=== PATIENT | female | born 1970 | race Caucasian/White ===

== ENCOUNTER 2020-08-14 14:32 | Outpatient (RCR) | payer BC, SELFPAY ==
[2020-08-14] MEDS: COVID-19 VACC, MRNA(PFIZER)/PF 30 MCG/0.3 ML SYRINGE IM (13:31)
[2020-09-04] MEDS: COVID-19 VACC, MRNA(PFIZER)/PF 30 MCG/0.3 ML SYRINGE IM (13:39)
== END 2020-08-14 23:59 ==
LOC: IMMUN 14:32
PROVIDERS: PCP Student in an Organized Health Care Education/Training Program; Visit Provider Family Medicine
DX: Z23 Encounter for immunization (principal)
CPT/HCPCS: 0001A; 0002A; 91300

== ENCOUNTER → 2023-06-08 | Outpatient (CLI) | payer OTHER, SELFPAY ==
[2023-06-08 16:47] LABS: Absolute Lymphocyte Count 1.31 X10^3/uL (0.83-4.51); Basophil# 0.06 X10^3/uL; Eosinophil# 0.06 X10^3/uL; Hematocrit 38.9 % (37-47); Hemoglobin 12.3 g/dL (12.0-15.0); Lymphocyte # 1.31 X10^3/ul (0.83-4.51); Lymphocyte % 22.7 % (19-41); Mean Corp Hgb Conc 31.6 g/dL (32-36); Mean Corpuscular Hgb 28.6 pg (27.0-32.0); Mean Corpuscular Volume 90.5 fL (81-99); Mean Platelet Vol. 10.2 fl (6.2-12.0); Monocyte# 0.36 X10^3/uL; Monocyte% 6.2 % (0-10); NRBC Flagged by Analyzer 0 % (0-5); Neutrophil # 3.97 X10^3/uL (2.7-7.7); Neutrophil % 68.9 % (47-70); Platelet Count 295 K/mm3 (150-450); RBC Distribution Width CV 13.2 % (11.6-14.6); RBC Distribution Width SD 43.4 fl (35.1-43.9); White Blood Count 5.8 K/mm3 (4.4-11.0)
--- OUTSIDE RECORDS SUMMARY | 2023-06-08 17:19 | XMS RPT_ITS | CCD ---
Author Name Unknown Address [address] [place] [address] Organization [facility] Care Team Providers Care Meal Cooker Name Role Phone Titus Zendejas DO Primary Care Provider [phone] TITUS ZENDEJAS Primary Care Unavailable DOMINIK OTERO Attending Unavailable ANTIONE RICHARDSON Referring Unavailable TITUS ZENDEJAS Primary Care Unavailable DANIELLA MOSLEY Attending Unavailable JAYE MEDELLIN Referring Unavailable TITUS ZENDEJAS Primary Care Unavailable TITUS ZENDEJAS Primary Care Unavailable PAULA BARRERA Attending Unavailable TITUS ZENDEJAS Referring Unavailable TITUS ZENDEJAS Primary Care Unavailable Allergies Allergy Classification Reported Allergen(s) Allergy Type Date of Onset Reaction(s) Facility (4 sources) Amoxicillin; Translations: [AMOXICILLIN] Drug Allergy 09-02-2005 [facility] Work Phone: Medications Current Medications Medication Drug Class(es) Dates Sig (Normalized) Sig (Original) perflutren lipid microspheres 1.3 mL in NaCl (PF) 0.9% 10 mL injection (DEFINITY) (3 sources) Start: 06-14-2021 End: 09-13-2022 perflutren lipid microspheres 1.3 mL in NaCl (PF) 0.9% 10 mL injection (DEFINITY) 125 ml sodium chloride 9 mg/ml prefilled syringe (3 sources) Start: 06-14-2021 End: 09-13-2022 sodium chloride 0.9 % (flush) 10 mL (BD POSIFLUSH) Completed/Discontinued Medications Medication Drug Class(es) Dates Sig (Normalized) Sig (Original) B.animalis,bifid,infanti s,long (PROBIOTIC 4X ORAL) (1 source) B.animalis,bifid ,infant is,long (PROBIOTIC 4X ORAL) Take by mouth. 0 Active Problems Active Problems Problem Classification Problem Date Documented Da te Episodic/Chronic Cancer of breast (6 sources) Intraductal carcinoma in situ of breast; Translations: [Intraductal carcinoma in situ of unspecified breast] Onset: 05-07-2009 05-07-2009 Chronic Genitourinary symptoms and ill-defined conditions (1 source) Increased frequency of urination; Translations: [Frequency of micturition] Episodic Menstrual disorders (3 sources) Menorrhagia; Translations: [Excessive and frequent menstruation with regular cycle] Onset: 09-26-2009 09-26-2009 Chronic Nonmalignant breast conditions (3 sources) Fibrocystic disease of breast; Translations: [Diffuse cystic mastopathy of unspecified breast] Onset: 06-17-2011 06-17-2011 Chronic Past or Other Problems Problem Classification Problem Date Documented Da te Episodic/Chronic Cancer of breast (3 sources) H/O: breast problem; Translations: [Personal history of in-situ neoplasm of breast] Onset: 03-18-2011 03-18-2011 Episodic Nonmalignant breast conditions (6 sources) Mastodynia; Translations: [Mastodynia] Onset: 08-18-2011 08-18-2011 Episodic Other and unspecified benign neoplasm (3 sources) Leiomyoma; Translations: [Benign neoplasm of connective and other soft tissue, unspecified] Onset: 09-26-2009 09-26-2009 Episodic Other non-traumatic joint disorders (3 sources) Shoulder pain; Translations: [Pain in unspecified shoulder] Onset: 01-20-2014 01-20-2014 Episodic Other screening for suspected conditions (not mental disorders or infectious disease) (2 sources) Patient encounter status; Translations: [Encounter for screening for malignant neoplasm of colon] Onset: 08-29-2021 Episodic Results Test Name Value Interpretation Reference Range Facil ity Vital Signs Date Time Vital Sign Value Performing Clinician Faci lity 08-29-2021 13:58-0400 Diastolic blood pressure 60 mm[Hg] Dominik Otero MD Work Phone: [facility] 08-29-2021 13:58-0400 Heart rate 73 /min Dominik Otero MD Work Phone: [facility] 08-29-2021 13:58-0400 Respiratory rate 16 /min Dominik Otero MD Work Phone: [facility] 08-29-2021 13:58-0400 SaO2% (BldA) [Mass fraction] 100 % Dominik Otero MD Work Phone: [facility] 08-29-2021 13:58-0400 Systolic blood pressure 109 mm[Hg] Dominik Otero MD Work Phone: [facility] 08-29-2021 12:02-0400 Body temperature 98.29 [degF] Dominik Otero MD Work Phone: [facility] Encounters Encounter Date Encounter Type Care Provider Facility Start: 03-03-2022 Telephone encounter Titus hennessy DO Work Phone: [facility] Procedures Date Procedure Procedure Detail Performing Clinician Start: 08-29-2021 Colon ca scrn not hi rsk ind Antione Richardson LAMINATING MACHINE OFFBEARER.CNM Work Phone: Start: 08-29-2021 Colonoscopy Dominik phillips MD Work Phone: Start: 03-08-2014 Adult depression scr eening assessment Dominik Otero MD Work Phone: Plan of Treatment Date Care Activity Detail Author Start: 08-30-2031 Colonoscopy COLONOSCOPY [facility] Start: 08-30-2031 COLORECTAL CANCER SCREENING COLORECTAL CANCER SCREENING [facility] Start: 07-12-2026 HPV TESTING HPV TESTING [facility] Start: 07-12-2026 PAP TESTING PAP TESTING [facility] Start: 08-29-2022 Colonoscopy COLONOSCOPY [facility] Start: 08-29-2022 COLORECTAL CANCER SCREENING COLORECTAL CANCER SCREENING [facility] Start: 01-30-2022 Influenza vaccination [facility] Start: 07-26-2021 COVID-19 VACCINE (4 - Booster for Pfizer series) COVID-19 VACCINE (4 - Booster for Pfizer series) [facility] Start: 07-01-2021 Urine microalbumin profile DTA P,TDAP,TD (2 - Td or Tdap) [facility] Start: 06-01-2021 DEPRESSION ASSESSMENT DEPRESSION ASS ESSMENT [facility] Start: 05-20-2021 COVID-19 VACCINE (4 - Booster for Pfizer series) COVID-19 VACCINE (4 - Booster for Pfizer series) [facility] Start: 01-30-2021 Influenza vaccination INFLUENZA (#1) [facility] Start: 2018 SHINGRIX VACCINE (1 of 2) SHINGRIX V ACCINE (1 of 2) [facility] Start: 02-03-2017 DIABETES SCREEN DIABETES SCREEN [facility] Start: 03-08-2015 Adult depression scr eening assessment DEPRESSION SCREENING [facility] Start: 2013 COLOGUARD (FIT-DNA) COLOGUARD (FIT-D NA) [facility] Start: [address] COLONOGRAPHY [facility] Start: 2013 FECAL OCCULT BLOOD FECAL OCCULT BLOO D [facility] Start: 2013 LIPID SCREEN LIPID SCREEN [facility] Start: 2013 SIGMOIDOSCOPY SIGMOIDOSCOPY [facility] Start: 1986 HEPATITIS C SCREENING HEPATITIS C SC REENING [facility] Start: 1986 HIV SCREENING HIV SCREENING [facility] Start: 1974 PNEUMOCOCCAL (1 - PCV) PNEUMOCOCCAL (1 - PCV) [facility] Start: 1968 HEPATITIS B (1 of 3 - 3-dose series) HEPATITIS B (1 of 3 - 3-dose series) [facility] Immunizations Immunization Date Immunization Notes Care Provider Fa larry 07-01-2011 tetanus toxoid, redu mirlande diphtheria toxoid, and acellular pertussis vaccine, adsorbed Dominik Otero MD Work Phone: [facility] Work Phone: Payers Date Payer Category Payer Private Health Insurance [employer] A ETNA CHOICE POS II [id number] 2021-Present [phone] [address] [place] [address] POS [id number] 2021 Private Health Insurance [employer] A ETNA CHOICE POS II [id number] 2021-Present [phone] [address] [place] [address] POS [id number] 2021 Private Health Insurance [id number] 2015 Unknown [id number] Social History Date Type Detail Facility Start: 05-26-2013 Tobacco smoking stat us PRIS Never smoked tobacco [facility] Start: 08-29-2021 End: 10-22-2021 Alcohol intake Current drinker of alcohol (finding) [facility] Start: 04-13-2013 History SDOH Alcohol Comment twice yearly [facility] Start: 1970 Sex Assigned At Female C [facility] Start: 08-19-2021 End: 08-29-2021 Exposure to SARS-CoV-2 (event) Not sure [facility] Work Phone: Start: 05-26-2013 Tobacco use and exposure Smokeless tobacco non-user [facility] Medical Equipment Procedure Code Equipment Code Equipment Origin al Text Equipment Identifier Dates [id number] Implant - [id number] Start: 03-31-2013 Clinical Notes 09-26-2009 to 03-06-2022 Telephone Encounter - Hina Brar LPN - 03/06/2022 8:58 AM EDTTelephone Encounter - Tanika Oliva APRN.CNP - 03/05/2022 7:37 PM ASHWINITRegina Espinoza RN - 08/29/2021 1:38 PM EDT Note Date & Type Note Facility 03-06-2022 Miscellaneous Notes Spoke to pt let her know of this. Took Did[facility] off as a pcp. She has not been seen in our office since 02/28/2014. We cannot prescribe anything for her, specifically because she is no longer our patient if not seen in the past [address] Zendejas as PCP for patient. Tanika Oliva APRN.AIR BREAKER OPERATOR Patient calling said she had COVID several weeks ago, she feels like she gets short of breath at times. Describes it as throat gets thick and she has to cough to clear it out. Patient was asking for inhaler rx. Advised would need to be evaluated, offered appt. Patient said she has a lot of medical bills and did not want to schedule an appt. Advised could go to express care if needed also. Patient said it is her asthma that gives her problems when winter is coming. She had used her daughter inhaler in the past when she did not have rx. Patient said she would think about it and would call back for appt. documented in this encounter [facility] 10-22-2021 Note HNO ID: [id number] Author: Daniella Mosley APRN.AIR BREAKER OPERATOR Service: ? Author Type: Nurse Practitioner Type: Progress Notes Filed: 10/22/2021 4:28 PM Note Text: Lesley Castaneda is a 51 year old female who presents for problem visit dysuria for 2 month(s). HPI: feels like a UTI is coming on but then it will get better. This has been going on for about 2 months. Denies any vaginal irritation or discharge. 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, s/p b/l mastectomy - DDD (degenerative disc disease) lumbar - Hypoglycemia, unspecified - Personal history of urinary (tract) infection - PONV (postoperative nausea and vomiting) - Unspecified asthma(493.90) EXERCISE INDUCED PAST SURGICAL HISTORY Procedure Laterality Date - BREAST NAKUL FLAP RECONSTRUCT 06/24/2013 bilateral breast - BREAST SURGERY HX - COLONOSCOPY 08/29/2021 repeat in 10 years - EXC BREAST LES PREOP PLMT RAD MARKER OPEN 1 LES 05/09/2009 LEFT BREAST - HYSTEROSCOPY ENDOMETRIAL ABLATION 09/27/2009 Thermachoice III ablation - LAPAROSCOPY W/PLMT OCCLUSION DEVICE OVIDUCTS 09/27/2009 Filshie clip sterilization - MASTECTOMY, PARTIAL 05/09/2009 LEFT BREAST - MASTECTOMY, SIMPLE, COMPLETE 06/24/2013 bilateral skin-sparing with bilateral SLND - PAST SURGICAL HISTORY OF cyst removed from neck at 1 years old - PAST SURGICAL HISTORY OF 09/2013; 03/2014 bilateral breast reconstructions - SKIN BIOPSY HX - STEREOTACTIC CORE BIOPSY 04/30/2009 left breast - STEREOTACTIC CORE BIOPSY 06/09/2011 right breast - STEREOTACTIC CORE BIOPSY 03/31/2013 left breast - STEREOTACTIC CORE BIOPSY 04/25/2013 left breast FAMILY HISTORY Problem Relation Age of Onset - Cancer Father Prostate - Ovarian cancer Paternal Grandmother 91 - Prostate Cancer Paternal Uncle - other (other cancers) Paternal Uncle no known family h/o: uterine,colon,pancreatic,lung,t hyroid,brain,leukemia,melenoma, sarcoma - Breast Cancer Other maternal great aunt Social History Tobacco Use - Smoking status: Never Smoker - Smokeless tobacco: Never Used Vaping Use - Vaping Use: Never used Substance Use Topics - Alcohol use: Yes Comment: twice yearly - Drug use: No No current outpatient medications on file. Current Facility-Administered Medications Medication Dose Route Frequency - perflutren lipid microspheres 1.3 mL in NaCl (PF) 0.9% 10 mL injection (DEFINITY) INTRAVENOUS DIRECTED PRN - sodium chloride 0.9 % (flush) 10 mL (BD POSIFLUSH) 10 mL INTRAVENOUS DIRECTED PRN Allergies As of Date: 10/22/2021 Allergen Noted Reaction AMOXICILLIN 09/02/2005 Rash Fully Assessed 08/29/2021 REVIEW OF SYSTEMS Abdomen: No bloating, early satiety, indigestion, or increased flatulence. No abdominal pain, nausea, vomiting, diarrhea, or constipation. Bladder: dysuria. Expanded ROS: N/A Allergies and current medication updated:Yes EXAM: LMP 10/20/2009 GENERAL: pleasant, female in no apparent distress HEENT: Normocephalic, atraumatic, mucus membranes moist and no lesions CHEST: Normal inspiratory effort NEURO: alert and oriented x3,exam grossly non-focal EXTREMITIES: normal ASSESSMENT/PLAN: 1. Dysuria - ICD9: 788.1, ICD10: R30.0 recurrent - Send urine for culture - Patient education for prevention given - URINE CULTURE - Info for interstitial cystitis given Daniella Molsey APRN.CNP Medical Decision Making: Problems: Low: Acute, uncomplicated illness or injury Data: Unique test(s) ordered: 1 Risk: Low: Low risk from testing/treatment Medical Decision Making Level: 3 - Low [facility] 10-22-2021 Miscellaneous Notes Patient scheduled for today. Tricia Sorensen RN Recommend appointment with AIR BREAKER OPERATOR today Jaye Medellin MD Patient calling with c/o UTI symptoms four times over the last 2 months. Yesterday, she felt sick, tired, and the urge to urinate more frequently. Typically her symptoms last a day or two and seem to be triggered by a bowel movement. Took an at home UTI test. WBC+, Nitrates neg. Today, both WBC and Nitrates were negative but still feeling like it's the start of a UTI. Agreeable to go to the lab. Orders pending. Kelsey Noel RN documented in this encounter [facility] 08-29-2021 Note HNO ID: [id number] Author: Regina Espinoza RN Service: ? Author Type: Registered Nurse Type: Nursing Progress Note Filed: 08/29/2021 1:49 PM Note Text: Abdomen soft non-distended. Will continue to monitor. [facility] 08-29-2021 Nurse Note Abdomen soft non-distended. Will continue to monitor. [facility] PRE-OP NURSING HAND OFF NOTE SBAR Hand off given to Leisa Oliva RN. Hand off was communicated verbally and at the patient's bedside and all questions were answered. 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, s/p b/l mastectomy DDD (degenerative disc disease) lumbar Hypoglycemia, unspecified Personal history of urinary (tract) infection PONV (postoperative nausea and vomiting) Unspecified asthma(493.90) EXERCISE INDUCED PAST SURGICAL HISTORY Procedure Laterality Date BREAST NAKUL FLAP RECONSTRUCT 06/24/2013 bilateral breast BREAST SURGERY HX EXC BREAST LES PREOP PLMT RAD MARKER OPEN 1 LES 05/09/2009 LEFT BREAST HYSTEROSCOPY ENDOMETRIAL ABLATION 09/27/09 Thermachoice III ablation LAPAROSCOPY W/PLMT OCCLUSION DEVICE OVIDUCTS 09/27/09 Filshie clip sterilization MASTECTOMY, PARTIAL 05/09/2009 LEFT BREAST MASTECTOMY, SIMPLE, COMPLETE 06/24/2013 bilateral skin-sparing with bilateral SLND PAST SURGICAL HISTORY OF cyst removed from neck at 1 years old PAST SURGICAL HISTORY OF 09/2013; 03/2014 bilateral breast reconstructions SKIN BIOPSY HX STEREOTACTIC CORE BIOPSY 04/30/09 left breast STEREOTACTIC CORE BIOPSY 06-09-11 right breast STEREOTACTIC CORE BIOPSY 03/31/13 left breast STEREOTACTIC CORE BIOPSY 04/25/2013 left breast Prior to Admission medications as of 08/29/21 1153 Not on File ALLERGIES Allergen Reactions Amoxicillin Rash Objective PHYSICAL EXAM: The remainder of the physical exam is noncontributory. AIRWAY: Airway Visualization of Uvula: Yes Mouth opening greater than 2 fingerbreadths: Yes Neck Full Range of Motion: Yes LUNGS: Lungs clear to auscultation CARDIAC: Regular rhythm,Regular rate Assessment/Plan ASA Class: ASA Class:: Patient with mild systemic disease Active Problems: * No active hospital problems. * Resolved Problems: * No resolved hospital problems. * Medication and Non-Pharmacologic VTE Prophylaxis/Anticoagulants VTE Prophylaxis: VTE prophylaxis appropriate Provisional Diagnosis/Treatment Plan: screening colonoscopy SEDATION GOAL: Moderate SIGNATURE: Dominik Otero MD PATIENT NAME: Lesley Castaneda DATE: August 29, 2021 TIME: 12:54 PM documented in this encounter [facility] 07-12-2021 Note ADDITIONAL PROCEDURES PRESENT Specimen originated from [facility] Specimen #: [id number] Submitting Physician: ANTIONE RICHARDSON CNM SPECIMEN SUBMITTED A: CERVICAL, SCREENING, FLUID FINAL DIAGNOSIS A. CERVICAL, SCREENING, FLUID Satisfactory for interpretation. Negative for intraepithelial lesion or malignancy. This specimen has been analyzed by the GauzyPrep Imaging System, an automated imaging and review system, which assists the laboratory in evaluating cells on ThinPrep Pap tests. Following automated imaging, selected price from every slide are reviewed by a car supplier. Jaye Chavez M.D. (Electronic Signature) ADDITIONAL PROCEDURE(S) HUMAN PAPILLOMA VIRUS Date Ordered: 07/16/2021 Date Reported: 07/17/2021 Procedure Results and Interpretation Negative for HPV DNA high risk type 16 by PCR. Negative for HPV DNA high risk type 18 by PCR. Negative for HPV DNA high risk types: 31,33,35,39,45,51,52,56,58,59,6 6,68 by PCR. This test was developed and its performance characteristics determined by [facility] [place] ([facility]). It has not been cleared or approved by the FDA. [facility] is regulated under CLIA as qualified to perform high-complexity testing. This test is used for clinical purposes. It should not be regarded as investigational or for research. CLINICAL DATA ROUTINE EXAM, HPV Testing: Yes, automatic HPV patients over 30 Date of Last Menstrual Period: Ablation STAINS A: CERVICAL, SCREENING, FLUID THIN PREP FLUME WORKER Date of Report: 07/23/2021 Date of Procedure: 07/12/2021 Date of Receipt: 07/16/2021 Submitted by: ANTIONE RICHARDSON CNM Location: [facility] Diagnostic interpretation performed at [facility], [address] [place] [address]. CLIA Number: [id number] The Pap Smear is a screening test for cervical cancer. False negative results occur with all screening tests, emphasizing the need for rescreening at recommended intervals, and clinical correlation. [facility] 07-12-2021 Note HNO ID: [id number] Author: Antione Richardson APRN.WOOD Service: ? Author Type: Service Order Clerk Type: Progress Notes Filed: 07/16/2021 4:10 PM Note Text: Lesley is a 50 year old who presents for an annual gynecologic exam without complaints. Postmenopausal: No bleeding since ablation HRT use: No. Last Pap: 01/17/2015 normal HPV: 01/04/2015 negative History of abnormal pap: No Last mammogram: 2013 bilatearl mastectomy History of abnormal mammogram: Yes Sexually active: Yes Time with current partner: 27 years Pain with intercourse: Recently, possibly due to vaginal dryness Postcoital bleeding: No Hot flashes: Yes, in the evening mostly. Sometimes during the day. On average 5-6 a day. Effects sleep at times. Night sweats: No Vaginal dryness: Yes, mild Mood swings: No Insomnia: Yes, due to hot flashes Exercise: None Diet: Avoids Gluten. 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, s/p b/l mastectomy - DDD (degenerative disc disease) lumbar - Hypoglycemia, unspecified - Personal history of urinary (tract) infection - Unspecified asthma(493.90) EXERCISE INDUCED PAST SURGICAL HISTORY Procedure Laterality Date - BREAST NAKUL FLAP RECONSTRUCT 06/24/2013 bilateral breast - EXC BREAST LES PREOP PLMT RAD MARKER OPEN 1 LES 05/09/2009 LEFT BREAST - HYSTEROSCOPY ENDOMETRIAL ABLATION 09/27/09 Thermachoice III ablation - LAPAROSCOPY W/PLMT OCCLUSION DEVICE OVIDUCTS 09/27/09 Filshie clip sterilization - MASTECTOMY, PARTIAL 05/09/2009 LEFT BREAST - MASTECTOMY, SIMPLE, COMPLETE 06/24/2013 bilateral skin-sparing with bilateral SLND - PAST SURGICAL HISTORY OF cyst removed from neck at 1 years old - PAST SURGICAL HISTORY OF 09/2013; 03/2014 bilateral breast reconstructions - STEREOTACTIC CORE BIOPSY 04/30/09 left breast - STEREOTACTIC CORE BIOPSY 06-09-11 right breast - STEREOTACTIC CORE BIOPSY 03/31/13 left breast - STEREOTACTIC CORE BIOPSY 04/25/2013 left breast FAMILY HISTORY Problem Relation Age of Onset - Cancer Father Prostate - Ovarian cancer Paternal Grandmother 91 - Prostate Cancer Paternal Uncle - other (other cancers) Paternal Uncle no known family h/o: uterine,colon,pancreatic,lung,t hyroid,brain,leukemia,melenoma, sarcoma - Breast Cancer Other maternal great aunt SOCIAL HISTORY Social History Tobacco Use - Smoking status: Never Smoker - Smokeless tobacco: Never Used Vaping Use - Vaping Use: Never used Substance Use Topics - Alcohol use: Yes Comment: twice yearly - Drug use: No REVIEW OF SYSTEMS Abdomen: No abdominal pain, nausea, vomiting, diarrhea, or constipation. No bloating, early satiety, indigestion, or increased flatulence. Bladder: No dysuria, gross hematuria, urinary frequency, urinary urgency, or incontinence Breast: No breast lumps, nipple d/c, overlying skin changes, redness or skin retraction Allergies and current medication updated:Yes EXAM: BP 108/72 Ht 5' 7 (1.70m) Wt 144 lb (65.3kg) LMP 10/20/2009 BMI 22.55 kg/(m2). GENERAL: pleasant, female in no apparent distress HEENT: Normocephalic and atraumatic NECK: Supple and full range of motion DERMATOLOGY: Normal and without lesions BREAST: soft, non-tender, no dominant mass, no lymphadenopathy. Bilateral partial mastectomy. Surgical scars present. CHEST: Normal inspiratory effort ABDOMEN: soft, non-tender and no masses PELVIC: external genitalia normal, normal Bartholin's glands, urethra, Lafayette's glands, no vulvar lesions, no cervical lesions, good vaginal support, physiologic discharge present, normal appearing perineal body and perianal region BIMANUAL: uterus normal size, shape and consistency, no adnexal masses and non-tender RECTOVAGINAL: deferred. NEURO: alert and oriented x3,exam grossly non-focal EXTREMITIES: normal ASSESSMENT/PLAN: 1. Encounter for gynecological examination (general) (routine) without abnormal findings - ICD9: V72.31, ICD10: Z01.419 (primary diagnosis) - Completed pelvic and breast exam - Encouraged monthly BSE - Follow up for annual exam in one year. - PAP FLUID CERVICAL SCREENING 2. Encounter for screening for human papillomavirus (HPV) - ICD9: V73.81, ICD10: Z11.51 - PAP FLUID CERVICAL SCREENING 3. Pap smear for cervical cancer screening - ICD9: V76.2, ICD10: Z12.4 - Completed pelvic and breast exam - Encouraged monthly BSE - Follow up for annual exam in one year. - PAP FLUID CERVICAL SCRE (more content not included)... [facility] documented as of this encounter (statuses as of 08/30/2021) [facility] History of Past illness Narrative* Problem Noted Date Resolved Date Sterilization 09/26/2009 05/07/2012 documented as of this encounter (statuses as of 10/22/2021) [facility]04-[facility]2010 History of Past illness Narrative* Problem Noted Date Resolved Date Sterilization 09/26/2009 05/07/2012 documented as of this encounter (statuses as of 03/06/2022) [facility] Diagnosis Special screening for malignant neoplasms, colon documented in this encounter [facility] note* Diagnosis Urine frequency- Primary Urinary frequency documented in this encounter [facility] for referral (narrative)* Outpatient Procedure (Routine) - Closed Specialty Diagnoses / Procedures Referred By Zain pichardo Referred To Contact [facility] [place] [place] Diagnoses Special screening for malignant neoplasms, colon Procedures COLONOSCOPY SCREENING COLONOSCOPY FLX DX W/COLLJ SPEC WHEN Antione Pride APRN.CNM [address] [place] [address] [address] Referral ID Status Reason Start Date Expiration Date V isits Requested Visits Authorized [id number] Closed Auto-Generate d Referral 08/29/2021 07/12/2022 1 1 [facility] for visit Narrative* Outpatient Procedure (Routine) - Closed Specialty Diagnoses / Procedures Referred By Zain pichardo Referred To Contact [facility] [place] Diagnoses Special screening for malignant neoplasms, colon Procedures COLONOSCOPY SCREENING COLONOSCOPY FLX DX W/COLLJ SPEC WHEN Antione Pride APRN.CNM [address] [place] [address] [address] Referral ID Status Reason Start Date Expiration Date V isits Requested Visits Authorized [id number] Closed Auto-Generate d Referral 08/29/2021 07/12/2022 1 1 [facility] Medications Administered Section Inactive Administered Medications - up to 3 most recent administrations Medication Order MAR Action Action Date Dose Rate Site diphenhydrAMINE 12.5-50 mg injection (BENADRYL) 12.5-50 mg, INTRAVENOUS, DIRECTED, Starting on [place]line 08/29/21 at 1330, Until [place] 08/29/21 at 1729, DOSING DIRECTED BY PHYSICIAN FOR PROCEDURAL SEDATION ONLY, Intraprocedure Given 08/29/2021 1:21 PM EDT 25 mg Advance Directives No Advanced Directives Records FoundDocuments on File Type Date Recorded Patient [employer] Advance Directive(s) 08/29/2021 11:19 AM Advance Directive(s) 08/28/2021 3:48 PM Advance Directive(s) 12/08/2013 3:58 PM Advance Directive(s) 12/08/2013 5:53 PM Documents on File Type Date Recorded Patient [employer] Advance Directive(s) 08/29/2021 11:19 AM Advance Directive(s) 08/28/2021 3:48 PM Advance Directive(s) 12/08/2013 3:58 PM Advance Directive(s) 12/08/2013 5:53 PM Documents on File Type Date Recorded Patient [employer] Advance Directive(s) 12/08/2013 3:58 PM Advance Directive(s) 12/08/2013 5:53 PM Summary Purpose Family History No Family History Records Found Additional Source Comments Source Comments (unrecognize d section and content) In the event this informatio n is protected by the Federal Confidentiality of Alcohol and Drug Abuse Patient Records regulations: The Federal rules restrict any use of the information to criminally investigate or prosecute any alcohol or drug abuse patient.[facility] event this information is protected by the Federal Confidentiality of Alcohol and Drug Abuse Patient Records regulations: The Federal rules restrict any use of the information to criminally investigate or prosecute any alcohol or drug abuse patient.[facility] the event this information is protected by the Federal Confidentiality of Alcohol and Drug Abuse Patient Records regulations: The Federal rules restrict any use of the information to criminally investigate or prosecute any alcohol or drug abuse patient.[facility] Care Teams (unrecognized sec tion and content) Meal [employer]er Relationship Specialty Start Date End Date Titus Zendejas, DO [address] [place], [place] [id number] PCP - General Family Practice 02/28/14 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 This clinical summary was aggregated from multiple sources. Caution should be exercised in using it in the provision of clinical care. This summary normalizes information from multiple sources, and as a consequence, information in this document may materially change the coding, format and clinical context of patient data. In addition, data may be omitted in some cases. CLINICAL DECISIONS SHOULD BE BASED ON THE PRIMARY CLINICAL RECORDS. [facility] [employer] [facility]. provides no warranty or guarantee of the accuracy or completeness of information in this document.
[2023-06-08 17:40] LABS: ALB/GLOB Ratio 1.1 RATIO (0.9-2.4); AST(SGOT) 20 U/L (15-37); Alanine Aminotransfer ALT/SGPT 24 U/L (13-56); Alkaline Phosphatase 57 U/L (45-117); Anion Gap 6 (5-15); BUN 13 mg/dL (7-18); BUN/Creat Ratio 17.6 RATIO (10-20); Chloride 106 mmol/L (98-107); Creatinine, Serum 0.74 mg/dL (0.55-1.02); EST Glomerular Filtration Rate 87 mL/min (>60); Est Glom Filt Rate - Afr Amer 105 mL/min (>60); Globulin 3.7 g/dL (2.2-4.2); Glucose 88 mg/dL (74-106); Potassium 4.4 mmol/L (3.5-5.1); Protein, Total 7.7 g/dL (6.4-8.2); Sodium Level 142 mmol/L (136-145)
[2023-06-08 17:42] LABS: Vitamin D,25 Hydroxy 65.6 ng/mL
== END | disposition home or self-care (01) ==
LOC: BIMLAB 16:00
PROVIDERS: PCP Internal Medicine; Referring Provider Internal Medicine; Visit Provider Internal Medicine
DX: E55.9 Vitamin D deficiency, unspecified (principal); Z85.3 Personal history of malignant neoplasm of breast
CPT/HCPCS: 36415; 80053; 82306; 85025